=== PATIENT | male | born 1945 | race Caucasian/White ===

== ENCOUNTER 2022-12-02 02:50 | Inpatient (IN) | payer MEDICARE, OTHER ==
[~2022-12-02] VITALS: Ht 175.3 cm; Wt 67.8 kg
[2022-12-02] VITALS (28 sets, daily range): BP systolic 115–175; BP diastolic 68–101
--- NOTE | 2022-12-02 02:52 | NUR ---
PT ARRIVED TO ER VIA EMS, PT REPORTING PAIN IN THE RLQ, ABDOMINAL PAIN. 05/02 SHARP. STARTED EARLIER MONDAY IN THE DAY. PT REPORTS IT GRADUALLY GOT WORSE OVER THE COURSE OF 4 HOURS. PT A/OX4. ANXIOUS. VSS PT DENIES SOB ON ROOMAIR. DISCOMFORT NOTED. RIGHT AC 18G PATENT EMS INSERTED. NOTIFIED. FALL AND SAFETY PRECAUTIONS IN PLACE.
[2022-12-02 03:26] LABS: BASO% 0.2 % (0-3); HEMATOCRIT 41.6 % (39.0-50.0); IMMATURE GRANULOCYTES 0.8 % (0.0-5.0); LYMPH% 8.8 % (15-41); MEAN CELL VOLUME 89.8 fL CALC (80.0-100.0); MEAN CORPUSCULAR HGB 30.2 pG CALC (26.0-32.0); MEAN CORPUSCULAR HGB CONC 33.7 g/dL CAL (32.0-36.0); MONO% 6.3 % (2-13); NEUT# 8.39 thou/uL (1.82-7.42); NEUT% 83.9 % (42-76); RED BLOOD COUNT 4.63 mill/uL (4.70-6.10)
[2022-12-02 03:37] LABS: ALBUMIN 4.9 g/dL (3.2-5.0); ALKALINE PHOSPHATASE 50 u/l (38-126); ANION GAP 15 (6-22 (CALC)); BILIRUBIN, TOTAL 1.8 mg/dL (0.2-1.3); BUN 20 mg/dL (8-23); BUN/CREATININE RATIO 21 (12-20 (CALC)); CARBON DIOXIDE 24 mmol/l (22-30); CHLORIDE 101 mmol/l (95-108); CREATININE 0.9 mg/dL (0.7-1.3); GFR FOR AFR.AMER. > 60 ML/MIN (>=60 (CALC)); GFR OTHER RACES > 60 ML/MIN (>=60 (CALC)); LIPASE 34 u/l (23-300); POTASSIUM 4.1 mmol/l (3.5-5.1); SGOT/AST 25 u/l (19-48); SODIUM 136 mmol/l (137-146); TOTAL PROTEIN 7.6 g/dL (6.3-8.2)
--- NOTE | 2022-12-02 04:00 | NUR ---
PT COMPLETED HIS SECOND 15ML OF GASTROGRAFFIN. RADIOLOGY NOTIFIED AND PLAN FOR CT AT 0530, 1 HOUR AFTER THE LAST 15ML OF GASTROGRAFFIN WILL BE GIVEN. WILL CONTINUE TO MONIOR.
--- NOTE | 2022-12-02 04:37 | NUR ---
PT COMPLETED LAST OF ORAL CONTRAST. RADIOLOGY NOTIFIED. PT RESTING IN BED. VSS. FALL AND SAFETY PREAUTIONS IN PLACE. CALL LIGHT WITHIN REACH .
--- NOTE | 2022-12-02 05:15 | NUR ---
PT TO CT
--- NOTE | 2022-12-02 05:55 | NUR ---
pPT RETURNED FROM CT WITH NAD. PLACED BACK ON MONITOR. WILL CONTINUE TO MONITOR
--- NOTE | 2022-12-02 06:54 | NUR ---
PT SLEEPING IN BED WITH VSS AND NAD. PT HAS LR BOLUS AND ZOSYN RUNNING.
--- NOTE | 2022-12-02 07:17 | NUR ---
O2 APPLIED VIA NASAL CANULA. PT O2 SAT IS 84 -85% AFTER O2 APPLIED SATS WENT UP TO 95%
--- NOTE | 2022-12-02 08:20 | NUR ---
REPORT GIVEN TO MED SURG NURSE OMAR. PT IS GOING TO ROOM 269.
--- NOTE | 2022-12-02 08:25 | NUR ---
PT IN ROOM RESTING WITH EYES CLOSED, ALL FLUIDS HAVE COMPLETED, VSS, O2 STABLE ON OXYGEN. PT HAS NO CONCERNS AT THIS TIME. PT WILL BE ON MED [facility] FLOOR
--- NOTE | 2022-12-02 09:45 | NUR ---
PT TRANSPORT TO FLOOR VIA STRETCHER. ASSIST PT TO TRANSFER UNTO MED SURG BED. IS WITH PT IN ROOM.
[2022-12-02] MEDS ORDERED: ATORVASTATIN CA20 MG PO (11:41)
[2022-12-02] MEDS ORDERED: LOSARTAN POTASS50 MG PO (11:41)
[2022-12-02] MEDS ORDERED: OMEPRAZOLE DR20 MG PO (11:42)
[2022-12-02] MEDS ORDERED: TAMSULOSIN HCL0.4 MG PO (11:43)
--- NOTE | 2022-12-02 15:50 | NUR ---
PT ARRIVED FROM OR. AOx4, LYING IN BED, CORDOVA IN PLACE DRAINING TO GRAVITY. PT HAS 3 LAP SITES MIDLINE ABDOMEN, DERMABOND SEAL. NIOCLAS DRAIN TO R ABDOMEN, TAPED ACROSS ABD TO L SIDE. VSS, ALL SAFETY MEASURES IN PLACE.
--- NOTE | 2022-12-02 19:14 | NUR ---
BEDSIDE REPORT RECEIVED FROM OMAR MARTINEZ. PATIENT RESTING, EYES CLOSED. BED IN LOW POSITION. CALL LIGHT WITHIN REACH.
--- NOTE | 2022-12-02 22:04 | NUR ---
ASSESSMENT COMPLETED. PATIENT AWAKE, ALERT AND ORIENTED X3. VSS, NO DISTRESS NOTED. ABDOMEN TENDER TO TOUCH 3 LAP INCISIONS INTACT WITH DERMABOND, OPEN TO AIR. 60ML OF SEROSANGUINEOUS DRAINAGE EMPTIED FROM NICOLAS DRAIN. CORDOVA TO GRAVITY, PATENT, MAYO URINE NOTED. PATIENT C/O PAIN 9/10, DILAUDID GIVEN AT THIS TIME. NO FURTHER CONCERNS EXPRESSED. CALL LIGHT WITHIN REACH.
[2022-12-03] VITALS (8 sets, daily range): BP systolic 127–154; BP diastolic 65–85
--- NOTE | 2022-12-03 00:50 | NUR ---
RESTING COMFORTABLY EYES CLOSED. NO DISTRESS NOTED AT THIS TIME. CALL LIGHT WITHIN REACH.
--- NOTE | 2022-12-03 04:55 | NUR ---
RESTING EYES CLOSED. CALL LIGHT WITHIN REACH.
[2022-12-03 04:57] LABS: BASO% 0.2 % (0-3); EOS% 0.1 % (0-8); HEMATOCRIT 40.1 % (39.0-50.0); HEMOGLOBIN 13.2 g/dl (14.0-18.0); IMMATURE GRANULOCYTES 0.2 % (0.0-5.0); LYMPH% 9.4 % (15-41); MEAN CELL VOLUME 91.6 fL CALC (80.0-100.0); MEAN CORPUSCULAR HGB 30.1 pG CALC (26.0-32.0); MEAN CORPUSCULAR HGB CONC 32.9 g/dL CAL (32.0-36.0); MONO% 6.1 % (2-13); NEUT# 7.88 thou/uL (1.82-7.42); RED BLOOD COUNT 4.38 mill/uL (4.70-6.10); RED CELL DISTRI WIDTH 13.2 % (11.5-15.5)
[2022-12-03 05:18] LABS: ALKALINE PHOSPHATASE 36 u/l (38-126); ANION GAP 12 (6-22 (CALC)); BUN 20 mg/dL (8-23); BUN/CREATININE RATIO 22 (12-20 (CALC)); CARBON DIOXIDE 22 mmol/l (22-30); CHLORIDE 105 mmol/l (95-108); CREATININE 0.9 mg/dL (0.7-1.3); GFR FOR AFR.AMER. > 60 ML/MIN (>=60 (CALC)); GFR OTHER RACES > 60 ML/MIN (>=60 (CALC)); POTASSIUM 4.2 mmol/l (3.5-5.1); SGOT/AST 22 u/l (19-48); SODIUM 136 mmol/l (137-146)
[2022-12-03 05:32] LABS: ALBUMIN 3.3 g/dL (3.2-5.0); TOTAL PROTEIN 5.9 g/dL (6.3-8.2)
--- NOTE | 2022-12-03 06:15 | NUR ---
RECEIVED CALL FROM SPOUSE STATING PATIENT IS IN HORRIBLE PAIN AND IT HAS BEEN REPORTED THAT ANTIBIOTIC HAS NOT BEEN YET GIVEN. AT THIS TIME INFORMED BOTH DILAUDID AND ZOSYN WERE ADMINISTED ABOUT A HALF HOUR AGO, AND REASSESSMENT OF EFFECTIVENESS WILL FOLLOW SHORTLY. SPOUSE ALSO REPORTS THAT PATIENT VERBALIZED NOT BEING ABLE TO SWALLOW. PATIENT WAS GIVEN APPLE JUICE DURING THE NIGHT AND TOLERATED WELL.
--- NOTE | 2022-12-03 06:20 | NUR ---
PATIENT AWAKE IN BED. PAIN REASSESSED, PATIENT VERBALIZES PAIN IS 7/10. INFORMED PATIENT AT THIS TIME, SPOUSE CALLED WITH CONCERNS OF PAIN. HE DENIES THAT HE EXPRESSED HIS PAIN IS UNCONTROLLABLE. AT THIS TIME I ALSO INQUIRED ABOUT HIS INABILITY TO SWALLOW HE IS CURRENTLY DRINKING APPLE JUICE WITHOUT DIFFICULTY. PATIENT EXPRESSED THAT HE MENTIONED TO THAT HIS STRAW WAS DEFECTIVE. WHEN THE PATIENT REPORTED THIS A NEW STRAW WAS GIVEN IMMEDIATELY AND PATIENT WAS ABLE TO CONSUME HIS DRINK.
--- NOTE | 2022-12-03 18:02 | NUR ---
Notified MD rounding, patient heart rate in the 120s. EKG ordered, tele monitoring and NS bolus given.
--- NOTE | 2022-12-03 20:00 | NUR ---
RECEIVED REPORT FROM NURSE CHEEK, PATEINT ALERT ORIENTED, ONGOING IV OF NS @ 125CC/HR INFUSING WELL ON LFA G22, AND SALINE LOCK G 18 ON RAC, HOOKED ON TELEMETRY. ON CLEAR LIQUID DOING SMALL SIPS, DENIES NAUSEA, HOOKED ON O2 @ 4LPM VIA NC, PATEINT C/O PAIN PS 12/31 SHARP, WILL MEDICATE, INCISION CDI WITH DERMABOND, CORDOVA DRAINING MAYO COLORED URINE, [facility] [place]
[2022-12-03 23:34] LABS: URINE BLOOD DIPSTICK SMALL (NEGATIVE); URINE COLOR YELLOW; URINE GLUCOSE - DIPSTICK NEGATIVE (NEGATIVE); URINE KETONE 15 mg/dL (NEGATIVE); URINE PH 5.5 (4.5-8.0); URINE PROTEIN - DIPSTICK 100 mg/dL (NEG-TRACE); URINE SPECIFIC GRAVITY 1.025; URINE UROBILINOGEN - DIPSTICK 0.2 E.U./dL (0.2)
[2022-12-03 23:36] LABS: URINE NITRITE - DIPSTICK NEGATIVE (Negative)
[2022-12-03 23:37] LABS: URINE LEUK ESTERASE NEGATIVE (NEGATIVE)
[2022-12-03 23:44] LABS: URINE EPITHELIAL CELLS FEW EPI/hpf (0-FEW)
[2022-12-03 23:45] LABS: URINE BACTERIA MODERATE hpf; URINE MUCUS FEW hpf (NONE-FEW)
[2022-12-03 23:46] LABS: URINE COARSE GRANULAR CAST RARE lpf; URINE FINE GRAN CAST RARE lpf; URINE HYALINE CAST RARE lpf (NONE-RARE)
--- NOTE | 2022-12-04 00:08 | NUR ---
PATIENT C/O ACID REFLUX, CALLED DR GLOVER WITH ORDERS MADE.
[2022-12-04 04:00] VITALS: BP 166/91
--- NOTE | 2022-12-04 04:20 | NUR ---
PATIENT RESTING WITH EYES CLOSED, REMAINS ON O2 @ 4LPM VIA NC, BREATHING UNLABORED CALL LIGHT IN REACH.
--- NOTE | 2022-12-04 06:09 | NUR ---
patient resting in bed, no episode of vomitting, still not passing gas, hypoactive bowel sounds, patient turning and assiste to bed side commode earlier, currently resting in bed, call light in reachg.
--- NOTE | 2022-12-04 07:30 | NUR ---
recieved bedside report, white board updated fluids running at 125ml/hr, patient denies pain, complains of heartburn, still not passing flatus, reviewed plan for the day with patient.catherter is draining erika colored urine. patient safety precations in place.
--- NOTE | 2022-12-04 11:29 | NUR ---
PATIENT UP TO CHAIR AT 0900, TOLERATED WELL, ABDOMEN DISTENED, BELCHING AND COMPLAINTS OF HICCUPS, BOWEL SOUNDS ARE HYPOACTIVE YET, GIVEN PERCOCET FOR PAIN STATES DILAUDID MAKES HIM CONFUSED, 100 ML OF SEROUS FLUID EMPTIED FROM NICOLAS DRAIN. INCISIONS SHOW NO S/S OF INFECTION. PATIENT SAFETY MEASURES IN PLACE.
[2022-12-04 12:45] VITALS: BP 171/89
--- NOTE | 2022-12-04 13:42 | NUR ---
PATIENT AMBULATED TO BATHROOM, SOB INCREASE IN O2 NEEDS, AT 5L, O2 DOWN TO 85%, RECOVERED QUICKLY, 4L TO MAINTAIN 93%. UNABLE TO PASS FLATUS, ENCOURAGE BREATHING THROUGH NOSE AND DEEP BREATHS, PATIENT BACK TO BED, URINE DRAINING, NICOLAS DRAINING SEROUS FLUID, EMPTIED 250 THUS FAR IN SHIFT.PATIENT SAFETY MEASURES IN PLACE.
--- NOTE | 2022-12-04 17:27 | NUR ---
PATIENT IN BED, APPEARED TO BE RESTING THIS AFTERNOON, NO S/S OF DISTRESS, PATIENT SAFETY MEASURES IN PLACE
[2022-12-04 19:19] VITALS: BP 180/88
--- NOTE | 2022-12-04 20:00 | NUR ---
RECEIVED REPORT FROM NURSE GUZMAN. PATEINT RESTING IN BED, WATCHING TV, S/P LAP APPY, PATIENT ALERT ORIENTED, ABLE TO MAKE NEEDS KNOWN, IV ON LFA NS @ 125CC/HR INFUSINGW WELL, HOOKED ON TELEMETRY, LUNG SOUNDS CLEAR, USES INCENTIVE SPIROMETER VOLUME AT 1000, HOOKED ON O2 AT 4LPM VIA NC, NICOLAS DRAIN ON RT ABDOMEN DRAINED SANGUINEOUS FLUID 80CC DRAINED AT THIS TIME, ABDOMEN DISTENDED FIRM, HAS NOT PASS GAS YET, MD AWARE, CALL LIGHT IN REACH.
--- NOTE | 2022-12-04 23:56 | NUR ---
clayton c/o pain on abdomen ps 6/10, percocet give, edgardo drained sanguineous fluid 90cc.call light in recah.
[2022-12-05] VITALS (8 sets, daily range): BP systolic 150–183; BP diastolic 80–92
--- NOTE | 2022-12-05 05:07 | NUR ---
PATIENT C/O ACID REFLUX TUMS AND PROTONIX GIVEN, PATIENT BOWEL SOUND ACTIVE ON ALL QUADRANTS, STILL NOT PASSING GAS AND NO BM.
--- NOTE | 2022-12-05 08:00 | NUR ---
PT RESTING IN BED. ASSESSMENT COMPLETED. TELE MONTOR IN PLACE. CONTINOUS MONITORING PER ED. EDUCATED PT IN CURRENT PLAN OF CARE. PT INIDICATED UNDERSTANDING. FALL/SAFTEY PRECAUTIONIN PLACE. CALL LIGHT WITHIN REACH
--- NOTE | 2022-12-05 09:51 | NUR ---
PT STATES PAIN IN ABD. MEDICATED SEE EMAR. CORDOVA REMOVED PER MD KO. PT TOELRATED WELL. FALL/SAFTEY PRECAUITON IN PLACE. CALL LIGHT WITHIN REACH
--- NOTE | 2022-12-05 17:52 | NUR ---
PT WAS PLACED ON O2 EARLIER AFTER SURGERY BY OR. FOUND ON 40% VENTI MASK. O2 SAT 87%. INCREASED TO 50% VENTI.
--- NOTE | 2022-12-05 19:25 | NUR ---
RECEIVED REPORT FROM [facility] NURSE. PT IS LYING IN BED ON O2 . INSTRUCTED PT TO US INCENTIVE SPRIOMETER 10 TIME AN HOUR. PT HAS NO COMPLAINTS AT THIS TIME. NICOLAS DRAINED HAS BEEN EMPTIED. CALL LIGHT WITHIN REACH AND SAFETY PRECAUTIONS IN PLACE.
--- NOTE | 2022-12-05 19:28 | NUR ---
PATIENT NEEDING OXYGEN YET, INEFFECTIVE BREATHING. REPEATED TEACH ON DEEP BREATHING, AND INCENTIVE SPIROMETRY USE, PATIENT URINATED 400 ML AT 1800, CT COMPLETED .
[2022-12-06] VITALS (7 sets, daily range): BP systolic 150–194; BP diastolic 70–96
--- NOTE | 2022-12-06 01:15 | NUR ---
PT IN BED SLEEPING. NO COMPLAINTS OF PAIN AT THIS TIME. CALL LIGHT WITH IN REACH AND SAFETY PRECAUTIONS IN PLACE.
--- NOTE | 2022-12-06 04:30 | NUR ---
PT IS LYING IN BED SLEEPING COMFORTABLY. PT SHOWS NO VISABLE SIGNS OF PAIN OR DISCOMFORT AT THE MOMENT. CALL LIGHT WITHIN REACH AND SAFETY PRECAUTIONS IN PLACE.
[2022-12-06 05:12] LABS: BASO% 0.3 % (0-3); EOS% 0.5 % (0-8); HEMATOCRIT 35.7 % (39.0-50.0); HEMOGLOBIN 12.1 g/dl (14.0-18.0); IMMATURE GRANULOCYTES 0.9 % (0.0-5.0); LYMPH% 7.8 % (15-41); MEAN CELL VOLUME 90.8 fL CALC (80.0-100.0); MEAN CORPUSCULAR HGB 30.8 pG CALC (26.0-32.0); MEAN CORPUSCULAR HGB CONC 33.9 g/dL CAL (32.0-36.0); MONO% 9.7 % (2-13); NEUT# 7.01 thou/uL (1.82-7.42); NEUT% 80.8 % (42-76); RED BLOOD COUNT 3.93 mill/uL (4.70-6.10); RED CELL DISTRI WIDTH 13.4 % (11.5-15.5)
[2022-12-06 05:32] LABS: ANION GAP 10 (6-22 (CALC)); BUN 19 mg/dL (8-23); BUN/CREATININE RATIO 29 (12-20 (CALC)); CARBON DIOXIDE 24 mmol/l (22-30); CHLORIDE 109 mmol/l (95-108); CREATININE 0.6 mg/dL (0.7-1.3); GFR FOR AFR.AMER. > 60 ML/MIN (>=60 (CALC)); GFR OTHER RACES > 60 ML/MIN (>=60 (CALC)); POTASSIUM 3.5 mmol/l (3.5-5.1); SODIUM 140 mmol/l (137-146)
--- NOTE | 2022-12-06 07:00 | NUR ---
BEDSIDE REPORT RECEIVED FROM PM RN. ALL SAFETY MEASURES IN PLACE. VSS.
--- NOTE | 2022-12-06 12:00 | NUR ---
PT RESTING IN BED. ALL SAFETY MEASURES IN PLACE. VSS.
--- NOTE | 2022-12-06 14:04 | NUR ---
S: DARA DUNCAN is a 77 M who presents with acute appendicitis and pneumonia. He has a history of Hypertension, BPH and GERD. All medications in patient's chart were reviewed. O: VS: BP 150/70mmHg , P 90BPM, RR 22BPM,T 97.9F W 79.3kg, HT 69in, Scr=0.6mg/dl,CrCl= 64ml/min A: Blood culture is pending. Pleural fluid culture is pending. P: Patient is on Zosyn 3.375 g IV q6h. Vancomycin ordered for pharmacy to dose. Start Vancomycin 1gm IV Q12H. Vancomycin trough is drawn before the 4th dose on 12/07/2022@2330. Vancomycin goal trough is between 15-20 mcg/ml. Pharmacy will follow and or advise on antibiotics use as needed.
--- NOTE | 2022-12-06 16:00 | NUR ---
PT RESTING IN BED. ALL SAFETY MEASURES IN PLACE. VSS.
--- NOTE | 2022-12-06 19:40 | NUR ---
Report received from Brian Williamson Rn.
--- NOTE | 2022-12-06 20:40 | NUR ---
Patient report given to Anil Perry Rn.
--- NOTE | 2022-12-06 22:18 | NUR ---
PATIENT IN BED AWAKE AND ALERT. DENIES PAIN OR DISCOMFORT AT THIS TIME. RESPIRATIONS EVEN AND UNLABORED. CONTINUES ON OXYGEN VIA NASAL CANNULA. CALL LIGHT WITHIN REACH.
[2022-12-07] VITALS (10 sets, daily range): BP systolic 164–189; BP diastolic 73–95
--- NOTE | 2022-12-07 01:40 | NUR ---
PATIENT IN BED WITH EYES CLOSED. EASILY AROUSED. DENIES PAIN OR DISCOMFORT. SAFETY MEASURES IN PLACE. RESPIRATIONS EVEN AND UNLABORED. CONTINUES ON OXYGEN. CALL LIGHT WITHN REACH.
--- NOTE | 2022-12-07 04:30 | NUR ---
PATIENT UP TO BATHROOM TO SHOWER PER HIS REQUEST. PATIENT ABLE TO SHOWER SELF WITH SET UP. REMINDED TO CALL FOR ASSISTANCE IF NEEDED. PATIENT VERBALIZES UNDERSTANDING.
[2022-12-07 05:52] LABS: BASO% 0.4 % (0-3); EOS% 2.1 % (0-8); HEMATOCRIT 32.5 % (39.0-50.0); HEMOGLOBIN 10.8 g/dl (14.0-18.0); IMMATURE GRANULOCYTES 2.5 % (0.0-5.0); LYMPH% 12.6 % (15-41); MEAN CELL VOLUME 90.3 fL CALC (80.0-100.0); MEAN CORPUSCULAR HGB CONC 33.2 g/dL CAL (32.0-36.0); MONO% 11.2 % (2-13); NEUT# 6.5 thou/uL (1.82-7.42); NEUT% 71.2 % (42-76); RED BLOOD COUNT 3.6 mill/uL (4.70-6.10); RED CELL DISTRI WIDTH 13.5 % (11.5-15.5)
--- NOTE | 2022-12-07 06:29 | NUR ---
PATIENT AWAKE IN BED. DENIES PAIN OR DISCOMFORT. RESPIRATIONS EVEN AND UNLABORED. PATIENT CONTINUES ON OXYGEN VIA VENTURI MASK. CALL LIGHT WITHIN REACH.
[2022-12-07 06:38] LABS: ALKALINE PHOSPHATASE 43 u/l (38-126); ANION GAP 8 (6-22 (CALC)); BUN 19 mg/dL (8-23); BUN/CREATININE RATIO 25 (12-20 (CALC)); CARBON DIOXIDE 25 mmol/l (22-30); CHLORIDE 109 mmol/l (95-108); CREATININE 0.8 mg/dL (0.7-1.3); GFR FOR AFR.AMER. > 60 ML/MIN (>=60 (CALC)); GFR OTHER RACES > 60 ML/MIN (>=60 (CALC)); MAGNESIUM 1.9 mg/dL (1.6-2.3); POTASSIUM 3.2 mmol/l (3.5-5.1); SGOT/AST 35 u/l (19-48); SODIUM 139 mmol/l (137-146); TOTAL PROTEIN 4.8 g/dL (6.3-8.2)
[2022-12-07 06:40] LABS: ALBUMIN 2.6 g/dL (3.2-5.0); BILIRUBIN, TOTAL 0.3 mg/dL (0.2-1.3)
--- NOTE | 2022-12-07 07:00 | NUR ---
RECEIVE REPORT FROM YAMILE MARTINEZ
--- NOTE | 2022-12-07 08:00 | NUR ---
ALERT AND ORIENTED PATIENT X3. IT IS OBSERVED RESTING IN THE BED. PATIENT CONNECTED TO TELE MONITOR. SINUS RHYTHM AT THE TIME OF THIS NOTE. O2 5L NC PATIENT REFERS NO PAIN OR DISCOMFORT AT THIS TIME. THE PATIENT IS EDUCATED AND ORIENTED ABOUT THE NURSING PLAN FOR TODAY AND MEDICATIONS. PATIENT REFERS TO UNDERSTAND. SAFETY AND FALL PRECAUTIONS IN PLACE. CALL LIGHT WITHIN IN REACH.
--- NOTE | 2022-12-07 12:00 | NUR ---
PATIENT STABLE AT THE TIME OF THIS NOTE. IT IS OBSERVED RESTING IN THE BED. PATIENT CONNECTED TO TELE MONITOR. SINUS RHYTHM AT THE TIME OF THIS NOTE. PATIENT REFERS NO PAIN OR DISCOMFORT. THE PATIENT IS EDUCATED AND ORIENTED ABOUT THE NURSING PLAN FOR TODAY AND MEDICATIONS. PATIENT REFERS TO UNDERSTAND.
--- NOTE | 2022-12-07 15:36 | NUR ---
BOOKED AN INFECTIOUS DISEASE CONSULT WITH DR GARCIA VIA THE [facility] AT 1521 HRS.
--- NOTE | 2022-12-07 16:35 | NUR ---
PATIENT RESTING STABLE AT THIS TIME. SAFETY AND FALL PRECAUTIONS IN PLACE. CALL LIGHT WITHIN IN REACH.
--- NOTE | 2022-12-07 19:50 | NUR ---
BEDSIDE REPORT RECEIVED FROM OFF GOING NURSE. PATIENT AWAKE AND ABLE TO MAKE NEEDS KNOWN. HEAD TO TOE ASSESSMENT COMPLETED. HAVING SOME SOB ON O2 @ 5LPM VIA NC. RT MADE AWARE AND IN TO SEE PATIENT. VENTI MASK @ 15 LITERS PLACED ON PATIENT. SATURATIONS AND SOB IMPROVED. DENIES PAIN AT THIS TIME. CALL LIGHT WITHIN REACH.
[2022-12-08] VITALS (49 sets, daily range): BP systolic 117–180; BP diastolic 55–102
--- NOTE | 2022-12-08 02:44 | NUR ---
PATIENT RESTING IN BED WITH EYES CLOSED. EASILY AROUSED. RESPIRATIONS EVEN AND UNLABORED ON O2 VIA VENTI MASK. DENIES PAIN OR DISCOMFORT. CALL LIGHT WITHIN REACH.
--- NOTE | 2022-12-08 05:39 | NUR ---
PATIENT AWAKE AND TALKATIVE DURING THIS ROUND. DENIES PAIN. STATES THAT HE IS HAVING SOME DIFFICULTY BREATHING AT TIMES. REPOSITIONED AND EDUCATED ON BREATHING EXERCISES. CALL LIGHT WITHIN REACH.
[2022-12-08 05:57] LABS: BASO% 0.6 % (0-3); EOS% 1.7 % (0-8); HEMATOCRIT 34.3 % (39.0-50.0); HEMOGLOBIN 11.5 g/dl (14.0-18.0); LYMPH% 16.7 % (15-41); MEAN CORPUSCULAR HGB 30.2 pG CALC (26.0-32.0); MEAN CORPUSCULAR HGB CONC 33.5 g/dL CAL (32.0-36.0); MONO% 8.5 % (2-13); NEUT# 6.76 thou/uL (1.82-7.42); NEUT% 64.7 % (42-76); RED BLOOD COUNT 3.81 mill/uL (4.70-6.10); RED CELL DISTRI WIDTH 13.5 % (11.5-15.5)
[2022-12-08 06:01] LABS: ALBUMIN 2.8 g/dL (3.2-5.0); ALKALINE PHOSPHATASE 47 u/l (38-126); ANION GAP 8 (6-22 (CALC)); BILIRUBIN, TOTAL 0.3 mg/dL (0.2-1.3); BUN 15 mg/dL (8-23); BUN/CREATININE RATIO 21 (12-20 (CALC)); CARBON DIOXIDE 23 mmol/l (22-30); CHLORIDE 109 mmol/l (95-108); CREATININE 0.7 mg/dL (0.7-1.3); GFR FOR AFR.AMER. > 60 ML/MIN (>=60 (CALC)); GFR OTHER RACES > 60 ML/MIN (>=60 (CALC)); MAGNESIUM 1.9 mg/dL (1.6-2.3); POTASSIUM 3.4 mmol/l (3.5-5.1); SGOT/AST 39 u/l (19-48); SODIUM 137 mmol/l (137-146); TOTAL PROTEIN 5.3 g/dL (6.3-8.2)
[2022-12-08 06:31] LABS: IMMATURE GRANULOCYTES 7.8 % (0.0-5.0)
--- NOTE | 2022-12-08 07:38 | NUR ---
RECEIVE REPORT FROM YAMILE MARTINEZ.
--- NOTE | 2022-12-08 09:46 | NUR ---
S: DARA DUNCAN is a 77 M who presents with pneumonia. He has a history of hypertension. BPH, GERD. All medications in patient's chart were reviewed. O: VS: BP 172/80mmHg,P 83bpm,RR 22bpm,T 99.3F W 79kg, HT 69in, Scr=0.7,CrCl= 101.9ml/min Vancomycin trough 12/07/22@2330 = 9 A: Preliminary Blood culture show no growth at 48 hours. Vancomycin trough drawn before the 4th dose is subtherapeutic. Increase in dose is warranted. P: Patient is on ceftriaxone 2GM IV daily and vamcomycin 1GM IV Q12H. Vancomycin ordered for pharmacy to dose. Increased Vancomycin to 1250mg IV Q12H. Vancomycin trough is drawn before the 4th dose on 12/09/22 @ 2330. Vancomycin goal trough is between 15-20 mcg/ml Pharmacy will follow and or advise on antibiotics use as needed.
--- NOTE | 2022-12-08 12:00 | NUR ---
PATIENT STABLE AT THE TIME OF THIS NOTE. IT IS OBSERVED RESTING IN THE BED. PATIENT CONNECTED TO TELE MONITOR. SINUS RHYTHM AT THE TIME OF THIS NOTE. POSSIBLE TRANSFER TO ICU FOR CHANGE IN THE DIAGNOSIS.
--- NOTE | 2022-12-08 13:01 | NUR ---
Stable patient at the time of this note is transferred to the ICU. Gived Report to selene MARTINEZ. Patient and are educated about the reason for the transfer, both report understanding.
--- NOTE | 2022-12-08 13:45 | NUR ---
REPORT RECIEVED OVER THE PHONE BY MED-CHEMICAL DEPENDENCY PROFESSIONAL. PT BROUGHT TO ICU BY HOSPITAL BED WITH O2. PT IN STABLE CONDITION. BELONGINGS WITH PATIENT. PATIENT IS ALERT AND ORIENTED. NO COUGH. PT CURRENTLY ON 5L NC WITH 02 SATURATION 92%. PT DENIES ANY SOB AT THIS TIME. PT ATTACHED TO CONTINUOUS MONITOR. PT IN NSR, BP STABLE. BOWEL SOUNDS PRESENT, ABDOMEN SOFT AND DISTENDED. PT DENIES ANY PAIN. CALL LIGHT AND BELONGINGS WITHIN REACH.
[2022-12-08 13:48] LABS: BASO% 0.3 % (0-3); EOS% 0.9 % (0-8); HEMATOCRIT 38.8 % (39.0-50.0); HEMOGLOBIN 12.9 g/dl (14.0-18.0); LYMPH% 11.7 % (15-41); MEAN CORPUSCULAR HGB 29.6 pG CALC (26.0-32.0); MEAN CORPUSCULAR HGB CONC 33.2 g/dL CAL (32.0-36.0); MONO% 7.6 % (2-13); NEUT# 8.34 thou/uL (1.82-7.42); NEUT% 71.4 % (42-76); RED BLOOD COUNT 4.36 mill/uL (4.70-6.10); RED CELL DISTRI WIDTH 13.5 % (11.5-15.5)
[2022-12-08 13:49] LABS: IMMATURE GRANULOCYTES 8.1 % (0.0-5.0)
[2022-12-08 13:58] LABS: ACT PARTIAL THROMBO TIME 27.8 SECONDS (20.0-32.5); INTERNATIONAL NORMALIZED RATIO 1.2 RATIO (0.7-1.3); PROTHROMBIN TIME 11.5 SECONDS (9.0-12.5)
--- NOTE | 2022-12-08 14:15 | NUR ---
PT SITTING IN BED. AT BEDSIDE. PT ASSESSMENT COMPLETED. PT DENIES ANY PAIN OR SOB. PT ON NC 5L. CALL LIGHT IN REACH.
--- NOTE | 2022-12-08 18:00 | NUR ---
PT LYING IN BED. MEAL TRAY BROUGHT TO PATIENT; PT SITTING UP ON EDGE OF BED TO EAT. PT DENIES ANY PAIN OR SOB. CALL LIGHT IN REACH.
--- NOTE | 2022-12-08 19:20 | NUR ---
REPORT RECEIVED FROM Blayne CHRISTIANSON RN.
--- NOTE | 2022-12-08 20:00 | NUR ---
PATIENT RESTING, NO APPARENT DISTRESS NOTED. PATIENT DENIES ANY CURRENT PAIN, NO SBO NOTED AT THIS TIME. PATIENT CURRENTLY SATURATING 93% ON 5L VIA HF CANNULA. CALL LIGHT AND BEDSIDE TABLE WITHIN REACH.
--- NOTE | 2022-12-08 21:50 | NUR ---
MEDICATIONS ADMINISTERED PER MAR, PT REFUSED SURFAK AND MALOX.
[2022-12-09] VITALS (88 sets, daily range): BP systolic 109–183; BP diastolic 64–115
--- NOTE | 2022-12-09 | NUR ---
ABX HUNG AT THIS TIME. PATIENT AWAKE, NO APPARENT DISTRESS NOTED, RESPIRATIONS EVEN AND UNLABORED, RISE AND FALL OF CHEST NOTED. CALL LIGHT AND BEDSIDE TABLE WITHIN REACH. REMIANS ON 7L VIA HF CANNULA
--- NOTE | 2022-12-09 02:00 | NUR ---
PATIENT RESTING, NO APPARENT DISTRESS NOTED. RESPIRATIONS EVEN AND UNLABORED, RISE AND FALL OF CHEST NOTED. CALL LIGHT AND BEDSIDE TABLE WITHIN REACH, REMIANS ON 7L VIA HF CANULA.
--- NOTE | 2022-12-09 04:00 | NUR ---
PATIENT RESTING, NO APPARENT DISTRESS NOTED. RESPIRATIONS EVENA ND UNLABORED, CALL LIGHT AND BEDSIDE TABLE WITHIN REACH. CONTINUES ON 7L VIA HF CANULA.
[2022-12-09 05:15] LABS: BASO% 0.5 % (0-3); EOS% 1.5 % (0-8); HEMATOCRIT 32.9 % (39.0-50.0); HEMOGLOBIN 11.1 g/dl (14.0-18.0); LYMPH% 14.8 % (15-41); MEAN CELL VOLUME 88.9 fL CALC (80.0-100.0); MEAN CORPUSCULAR HGB CONC 33.7 g/dL CAL (32.0-36.0); MONO% 7.8 % (2-13); NEUT# 6.39 thou/uL (1.82-7.42); NEUT% 67.9 % (42-76); RED BLOOD COUNT 3.7 mill/uL (4.70-6.10); RED CELL DISTRI WIDTH 13.7 % (11.5-15.5)
[2022-12-09 05:22] LABS: IMMATURE GRANULOCYTES 7.5 % (0.0-5.0)
[2022-12-09 05:30] LABS: ALBUMIN 2.9 g/dL (3.2-5.0); ALKALINE PHOSPHATASE 47 u/l (38-126); ANION GAP 10 (6-22 (CALC)); BILIRUBIN, TOTAL 0.3 mg/dL (0.2-1.3); BUN 13 mg/dL (8-23); BUN/CREATININE RATIO 19 (12-20 (CALC)); CARBON DIOXIDE 23 mmol/l (22-30); CHLORIDE 107 mmol/l (95-108); CREATININE 0.7 mg/dL (0.7-1.3); GFR FOR AFR.AMER. > 60 ML/MIN (>=60 (CALC)); GFR OTHER RACES > 60 ML/MIN (>=60 (CALC)); MAGNESIUM 1.9 mg/dL (1.6-2.3); POTASSIUM 3.1 mmol/l (3.5-5.1); SGOT/AST 34 u/l (19-48); SODIUM 137 mmol/l (137-146); TOTAL PROTEIN 5.3 g/dL (6.3-8.2)
--- NOTE | 2022-12-09 06:28 | NUR ---
10MG HYDRALAZINE IV GIVEN FOR B/P 173/71.
--- NOTE | 2022-12-09 08:00 | NUR ---
REPORT RECIEVED FROM NIGHT RN. PT LYING IN BED. VSS. PT IS A/O. PT WEARING NC AT 6L HUMIDIFIED; PT HAS SOB WHEN CHANGING POSITIONS TO SIT UP BUT RECOVERS WITH REST. NO COUGH. LUNG SOUNDS CLEAR BUT DIMINISHED. HEART RATE NSR; NO MURMURS AUSCULTATED. BOWEL SOUNDS ACTIVE; ABDOMEN FIRM AND DISTENDED. SURGICAL INCISIONS ON ABDOMEN DO NOT DISPLAY ANY S/S OF INFECTION; OTHERWISE SKIN INTACT. PT REPORTS HAVING DIFFICULTY URINATING; REPORTING URGENCY BUT THEN UNABLE TO PRODUCE ANY URINE. PULSES STRONG ALL EXTREMETIES. IV ACCESS RAC.
--- NOTE | 2022-12-09 09:00 | NUR ---
DR. PAUL AT BEDSIDE TO ASSESS PATIENT. PT'S AT BEDSIDE. BLADDER SCAN DONE, SHOWING 850ML. VERBAL ORDERS TO PLACE CORDOVA CATHETER. CORDOVA CATHETER PLACED WITHOUT DIFFICULTY. APPROXIMATELY 900ML URINE VOIDED. ORDERS FOR ABDOMINAL AND CHEST XRAY PLACED BY DR. PAUL. PT VERBALIZED UNDERSTANDING OF PLAN OF CARE.
--- NOTE | 2022-12-09 10:00 | NUR ---
PT LYING IN BED. CALL LIGHT AND BELONGINGS WITHIN REACH. VSS.
--- NOTE | 2022-12-09 12:00 | NUR ---
PT LYING IN BED. AT BEDSIDE. LUNCH TRAY BROUGHT TO PATIENT. O2 TITRATED FROM 5 TO 4 L NC AND TOLERATING WELL. CALL LIGHT IN REACH. PT DENIES ANY NEEDS AT THIS TIME.
--- NOTE | 2022-12-09 13:15 | NUR ---
SPECIALTY MOLDER AT BEDSIDE. XRAYS OBTAINED WITHOUT DIFFICULTY.
--- NOTE | 2022-12-09 14:00 | NUR ---
PT LYING IN BED. VSS. CALL LIGHT IN REACH. PT DENIED ANY SOB OR NEEDS AT THIS TIME.
--- NOTE | 2022-12-09 16:04 | NUR ---
PT LYING IN BED. CALL LIGHT IN REACH. PT VERBALIZED NO NEDS AT THIS TIME. DOING WELL ON 5L NC.
--- NOTE | 2022-12-09 16:47 | NUR ---
BP ELEVATED; SYSTOLIC IN 160'S FOR 2 CONSECUTIVE READINGS. PRN LABETOLOL GIVEN PER ORDERS. PT VERBALIZED UNDERSTANDING AND INDICATION.
[2022-12-10] VITALS (16 sets, daily range): BP systolic 134–172; BP diastolic 69–86
--- NOTE | 2022-12-10 | NUR ---
SLEEPING, NOT IN ANY DISTRESS.
--- NOTE | 2022-12-10 05:16 | NUR ---
SLEPT THRU THE NITE COMFORTABLE. STABLE VS'S.
[2022-12-10 05:41] LABS: HEMATOCRIT 31.5 % (39.0-50.0); MEAN CORPUSCULAR HGB 30.7 pG CALC (26.0-32.0); MEAN CORPUSCULAR HGB CONC 34.9 g/dL CAL (32.0-36.0); RED BLOOD COUNT 3.58 mill/uL (4.70-6.10); RED CELL DISTRI WIDTH 13.5 % (11.5-15.5)
[2022-12-10 05:54] LABS: ALBUMIN 2.9 g/dL (3.2-5.0); ALKALINE PHOSPHATASE 40 u/l (38-126); ANION GAP 9 (6-22 (CALC)); BUN 10 mg/dL (8-23); BUN/CREATININE RATIO 17 (12-20 (CALC)); CARBON DIOXIDE 24 mmol/l (22-30); CHLORIDE 106 mmol/l (95-108); CREATININE 0.6 mg/dL (0.7-1.3); GFR FOR AFR.AMER. > 60 ML/MIN (>=60 (CALC)); GFR OTHER RACES > 60 ML/MIN (>=60 (CALC)); MAGNESIUM 1.9 mg/dL (1.6-2.3); POTASSIUM 3.3 mmol/l (3.5-5.1); SGOT/AST 32 u/l (19-48); SODIUM 135 mmol/l (137-146); TOTAL PROTEIN 5.6 g/dL (6.3-8.2)
[2022-12-10 05:57] LABS: BILIRUBIN, TOTAL 0.5 mg/dL (0.2-1.3)
--- NOTE | 2022-12-10 12:19 | NUR ---
VANCO TROUGH IS 12 ON 12/10/22. CONTINUE VANCOMYCON 1250MG Q12H HOURS. NEXT TROUGH WILL BE ON 12/12/22 @1130
--- NOTE | 2022-12-10 20:00 | NUR ---
PATIENT NOTED LYING IN BED WITH NO ACUTE DISTRESS NOTED. ASSESSMENT COMPLETE. HE DENIES ANY PAIN OR DISCOMFORT. WILL CONTINUE TO MONITOR.
--- NOTE | 2022-12-10 22:00 | NUR ---
PATIENT NOTED LYING IN BED RESTING WITH NO ACUTE DISTRESS NOTED. BED LOCKED IN LOW POSITION. CALL LIGHT WITHIN REACH.
[2022-12-11] VITALS (13 sets, daily range): BP systolic 138–170; BP diastolic 70–136
--- NOTE | 2022-12-11 | NUR ---
PATIENT NOTED LYING IN BED RESTING COMFORTABLY. HE DENIES ANY PAIN OR DISCOMFORT AT THIS TIME. WILL CONTINUE TO MONITOR.
--- NOTE | 2022-12-11 04:00 | NUR ---
PATIENT NOTED SLEEPING COOMFORTAVLY WITH NO ACUTE DISTRESS NOTED. WILL CONTINUE TO MONITOR.
--- NOTE | 2022-12-11 06:00 | NUR ---
PATIENT NOTED LYING IN BED SLEEPING WITH NO ACUTE DISTRESS NOTED.
[2022-12-11 09:00] LABS: ANION GAP 13 (6-22 (CALC)); BUN 10 mg/dL (8-23); BUN/CREATININE RATIO 14 (12-20 (CALC)); CARBON DIOXIDE 22 mmol/l (22-30); CHLORIDE 106 mmol/l (95-108); CREATININE 0.7 mg/dL (0.7-1.3); GFR FOR AFR.AMER. > 60 ML/MIN (>=60 (CALC)); GFR OTHER RACES > 60 ML/MIN (>=60 (CALC)); POTASSIUM 3.6 mmol/l (3.5-5.1); SODIUM 137 mmol/l (137-146)
--- NOTE | 2022-12-11 19:27 | NUR ---
REPORT RECEIVED FROM OFFGOING NURSE. ASSESSMENT COMPLETED. PAIPOLO NOTED LYING IN BED RESTING COMFORTABLY WITH NO ACUTE DISTRESS NOTED AT THIS TIME. WILL CONTINUE TO MONITOR.
--- NOTE | 2022-12-11 22:00 | NUR ---
PATIENT LYING IN BED RESTING COMFORTABLY WITH NO ACUTE DISTRESS NOTED. BED LOCKED, IN LOW POSITION. CALL LIGHT WITHIN REACH. WILL CONTINUE TO MONITOR.
[2022-12-12] VITALS (9 sets, daily range): BP systolic 140–170; BP diastolic 61–83
--- NOTE | 2022-12-12 | NUR ---
PATIENT NOTED SLEEPING COMFORTABLY. NO SIGNS OR SYMPTOMS OF ACUTE DISTRESS NOTED. RAMON CONTINUE TO MONITOR.
--- NOTE | 2022-12-12 02:00 | NUR ---
PATIENT NOTED LYING IN BED RESTING COMFORTABLY WITH NO ACUTE DISTRESS NOTED. WILL CONTINUE TO MONITOR.
--- NOTE | 2022-12-12 04:00 | NUR ---
PATIENT NOTED LYING IN BED RESTING COMFORTABLY WITH NO ACUTE DISTRESS NOTED. VSS. BED LOCKED, IN LOW POSITION. CALL LIGHT WITHIN REACH. WILL CONTINUE TO MONITOR.
--- NOTE | 2022-12-12 06:00 | NUR ---
PATIENT NOTED LYING IN BED RESTING COMFORTABLY. NO ACUTE DISTRESS NOTED. PATIENT REMAINED ON O2 @ 2L NC ALL NIGHT; SATURATIONS REMAINED IN THE MID TO LOW 90S. PATIENT DOES DESAT QUICKLY WITH ACTIVITY AND WHEN REMOVED FROM OXYGEN. VSS AT THIS TIME. HE DENIES ANY PAIN OR DISCOMFORT.
[2022-12-12 06:03] LABS: BASO% 0.4 % (0-3); EOS% 1.8 % (0-8); HEMATOCRIT 32.7 % (39.0-50.0); HEMOGLOBIN 11.1 g/dl (14.0-18.0); IMMATURE GRANULOCYTES 3.2 % (0.0-5.0); LYMPH% 10.8 % (15-41); MEAN CELL VOLUME 88.9 fL CALC (80.0-100.0); MEAN CORPUSCULAR HGB 30.2 pG CALC (26.0-32.0); MEAN CORPUSCULAR HGB CONC 33.9 g/dL CAL (32.0-36.0); MONO% 8.3 % (2-13); NEUT# 7.28 thou/uL (1.82-7.42); NEUT% 75.5 % (42-76); RED BLOOD COUNT 3.68 mill/uL (4.70-6.10); RED CELL DISTRI WIDTH 13.3 % (11.5-15.5)
[2022-12-12 06:11] LABS: ANION GAP 8 (6-22 (CALC)); BUN 10 mg/dL (8-23); BUN/CREATININE RATIO 15 (12-20 (CALC)); CARBON DIOXIDE 25 mmol/l (22-30); CHLORIDE 107 mmol/l (95-108); CREATININE 0.7 mg/dL (0.7-1.3); GFR FOR AFR.AMER. > 60 ML/MIN (>=60 (CALC)); GFR OTHER RACES > 60 ML/MIN (>=60 (CALC)); POTASSIUM 3.5 mmol/l (3.5-5.1); SODIUM 136 mmol/l (137-146)
--- NOTE | 2022-12-12 07:20 | NUR ---
REPORT RECIEVED FROM NIGHT RN. PT CURRENTLY SITTING IN CHAIR. PT IS A/O. PT DENIES ANY SOB; NO COUGH. PT CURRENTLY ON 3L NC, LOWERED TO 2L; O2 SAT 92-94%. LUNGS CLEAR BUT DIMINISHED. HEART SOUNDS REGULAR; PT IS NSR. BOWEL SOUNDS ACTIVE. PT DENIES ANY ABDOMINAL PAIN OR TENDERNESS. ABDOMINAL LAP SITES FREE OF REDNESS OR SIGNS OF INFECTION. PT REPORTS SMALL BM LAST NIGHT. PT VOIDING THROUGH CORDOVA; URINE MAYO IN COLOR; HEMATURIA PRESENT. PULSES STRONG ALL EXTREMETIES. SKIN WARM/DRY. IV ACCESS 20 L WRIST. PT DENIES ANY PAIN OR NEEDS AT THIS TIME. CALL LIGHT AND BELONGINGS WITHIN REACH.
[2022-12-12] MEDS ORDERED: AMLODIPINE BESYL5 MG PO (08:13)
[2022-12-12] MEDS ORDERED: PANTOPRAZOLE SO40 M1 PO (08:14)
[2022-12-12] MEDS ORDERED: ELIQUIS5 MG PO (08:15)
[2022-12-12] MEDS ORDERED: AMOX/K CLAV875 M1 PO (08:15)
--- NOTE | 2022-12-12 08:30 | NUR ---
DR. PAUL AT BEDSIDE TO ASSESS PATIENT. CASE MANAGEMENT AT BEDSIDE TO DISCUSS DISCHARGE PLAN. PT NEEDS TO COMPLETE 6 MINUTE WALK TEST PRIOR TO DC TO QUALIFY FOR HOME OXYGEN.
--- NOTE | 2022-12-12 09:45 | NUR ---
6 MINUTE WALK TEST COMPLETED. PT AMBULATED WITHOUT DIFFICULTY. O2 SAT DROPPED TO 87% WITHOUT O2, THEN PLACED BACK ON 2L NC. PT RETURNED TO CHAIR AND O2 SAT RETURNED TO 94% QUICKLY. PT DENIED ANY SOB DURING ACTIVITY. AT CHAIRSIDE.
--- NOTE | 2022-12-12 11:46 | NUR ---
PT SITTING IN CHAIR. AT BEDSIDE. PT DENIED ANY NEEDS AT THIS TIME. VSS.
--- NOTE | 2022-12-12 13:45 | NUR ---
PT SITTING IN CHAIR. AT BEDSIDE. JOSE AIR TOOL OPERATOR IN ROOM TO DELIVER PT'S HOME OXYGEN.
--- NOTE | 2022-12-12 14:45 | NUR ---
PT GIVEN VERBAL AND WRITTEN DISCHARGE INSTRUCTIONS WITH AT BEDSIDE. ALL QUESTIONS ANSWERED. PT AND AWARE TO FOLLOW UP WITH PCP AND UROLOGY. PT AND EDUCATED ON USE OF HOME OXYGEN AND CORDOVA CATHETER CARE. IV REMOVED. PT IN GOOD CONDITION ON DISCHARGE. PT LEFT WITH CORDOVA SECURED AND EMPTIED, AND WEARING OXYGEN 2L NC. PT ESCORTED TO MAIN LOBBY BY [facility] IN A WHEELCHAIR. PT'S WILL BE DRIVING HIM HOME.
== END 2022-12-12 14:45 | disposition home health service (06) | DRG 338 ==
LOC: ED 02:50 → ED-I 06:25 → ED 06:36 → MS2 06:37 → ICU 06:37 → MS2 12-03 13:02 → ICU 12-08 13:45
PROVIDERS: Family Medicine; Internal Medicine; Nurse Practitioner Family; ADMIT Surgery; ATTEND Surgery
PROC: 0DTJ4ZZ Resection of Appendix, Percutaneous Endoscopic Approach (ICD-10-PCS; principal; 2022-12-02)
PROC: 0W993ZZ Drainage of Right Pleural Cavity, Percutaneous Approach (ICD-10-PCS; 2022-12-06)
PROC: 0T9B70Z Drainage of Bladder with Drainage Device, Via Natural or Artificial Opening (ICD-10-PCS; 2022-12-09)
DX: K35.33 Acute appendicitis with perforation, localized peritonitis, and gangrene, with abscess (principal); I26.93 Single subsegmental thrombotic pulmonary embolism without acute cor pulmonale; J18.9 Pneumonia, unspecified organism; J96.01 Acute respiratory failure with hypoxia; J91.8 Pleural effusion in other conditions classified elsewhere; N40.1 Benign prostatic hyperplasia with lower urinary tract symptoms; R33.8 Other retention of urine; R31.9 Hematuria, unspecified; I10 Essential (primary) hypertension; K21.9 Gastro-esophageal reflux disease without esophagitis; E78.00 Pure hypercholesterolemia, unspecified; B96.20 Unspecified Escherichia coli [E. coli] as the cause of diseases classified elsewhere; Z20.822 Contact with and (suspected) exposure to COVID-19
CPT/HCPCS: J1650; J2710; J3370; Q9967; S0164